=== PATIENT | male | born 1990 | race American Indian/Alaskan Native ===

== ENCOUNTER 2017-04-13 23:55 | Emergency (ER) | payer OTHER ==
[2017-04-14 00:49] LABS: Basophils % (Auto) 0.6 % (0.0-1.8); Eosinophils % (Auto) 1.3 % (0.0-4.3); Hematocrit 43.4 % (35.5-45.6); Hemoglobin 14.6 gm/dl (11.8-15.2); Mean Corpuscular HGB Conc 34 % (32-34); Mean Corpuscular Hemoglobin 32 pg (28-32); Mean Corpuscular Volume 95 fl (84-94); Platelet Count 297 K/mm3 (140-440); Red Blood Count 4.58 M/mm3 (3.65-5.03); Red Cell Distribution Width 13.5 % (13.2-15.2); White Blood Count 9.5 K/mm3 (4.5-11.0)
--- NOTE | 2017-04-14 00:52 | XRay Report ---
FINAL REPORT EXAM: XR CHEST ROUTINE 2V HISTORY: chest pain TECHNIQUE: 2 views of the chest. PRIORS: None. FINDINGS: The cardiomediastinal silhouette appears normal. The lungs are clear. The bones and soft tissues are unremarkable. IMPRESSION: No evidence of acute cardiopulmonary disease
[2017-04-14 01:12] LABS: Anion Gap 16 mmol/L; Blood Urea Nitrogen 14 mg/dL (9-20); Carbon Dioxide 24 mmol/L (22-30); Chloride 100.7 mmol/L (98-107); Glucose 106 mg/dL (75-100); Potassium 3.8 mmol/L (3.6-5.0); Sodium 137 mmol/L (137-145)
--- NOTE | 2017-04-14 03:49 | Emergency Department Report ---
ED Chest Pain HPI - General Chief Complaint: Chest Pain Stated Complaint: CHEST PAIN Time Seen by Provider: 04/14/17 03:48 Source: patient, RN notes reviewed Mode of arrival: Ambulatory Limitations: No Limitations - History of Present Illness Initial Comments: This is a 26-year-old male. He is previously unknown to me. He does not have a primary care doctor. He denies chronic medical conditions. He presents to the ER with chest pain. The chest pain is left-sided. Patient reports concurrent left-sided tingling. The pain itself does not radiate to the back, arms or neck. Patient reports a tingling is in his left arm and palm and fingertips. Patient also describes shortness of breath that came with his pain. He reports feeling very anxious and reports numerous psychosocial stressors. His pain started at 11:00 this evening. There is no leg pain or leg swelling. No recent trips greater than 4 hours. No recent hospital admissions. No recent cocaine use. No recent aspirin use. There is no hemoptysis or hematemesis. There is no cough. MD Complaint: chest pain -: Gradual Onset: during rest Pain Location: left chest Pain Radiation: LUE Severity: mild Severity scale (0 -10): 6 Quality: aching Consistency: intermittent Improves With: nothing Worsens With: nothing re: dyspnea. denies: nausea, vomting Other Symptoms: denies: cough, fever, syncope Treatments Prior to Arrival: none Aspirin use within the Past 7 Days: (0) No - Related Data On Oral Contraceptives: No Previous Rx's Medication Instructions Recorded Last Taken Type Ibuprofen [Motrin] 600 mg PO Q8H PRN #30 tablet 04/14/17 Unknown Rx Allergies Allergy/AdvReac Type Severity Reaction Status Date / Time No Known Allergies Allergy Verified 04/14/17 00:06 Heart Score - HEART Score History: Slightly suspicious EKG: Normal Age: < 45 Risk factors: No known risk factors Troponin: < normal limit HEART Score: 0 - Critical Actions Critical Actions: 0-3 pts:0.9-1.7%risk of adverse cardiac event.Candidate for discharge ED Review of Systems ROS: Stated complaint: CHEST PAIN Other details as noted in HPI Constitutional: denies: fever, malaise, weakness Eyes: denies: vision change ENT: denies: epistaxis Respiratory: shortness of breath Cardiovascular: chest pain Gastrointestinal: denies: abdominal pain Genitourinary: denies: dysuria Musculoskeletal: denies: back pain, arthralgia Skin: denies: lesions Neurological: paresthesias Psychiatric: anxiety ED Past Medical Hx - Past Medical History Additional medical history: anxiety - Surgical History Past Surgical History?: No - Social History Smoking Status: Current Every Day Smoker Substance Use Type: None - Medications Home Medications: Home Medications Medication Instructions Recorded Confirmed Last Taken Type Ibuprofen [Motrin] 600 mg PO Q8H PRN #30 tablet 04/14/17 Unknown Rx ED Physical Exam - General Limitations: No Limitations General appearance: alert, in no apparent distress - Head Head exam: Present: atraumatic, normocephalic - Eye Eye exam: Present: normal appearance, EOMI. Absent: nystagmus - ENT ENT exam: Present: normal exam, normal orophraynx, mucous membranes moist, normal external ear exam - Neck Neck exam: Present: normal inspection, full ROM. Absent: tenderness, meningismus - Respiratory Respiratory exam: Present: normal lung sounds bilaterally. Absent: respiratory distress, wheezes, rales, rhonchi, stridor, chest wall tenderness, accessory muscle use, decreased breath sounds, prolonged expiratory - Cardiovascular Cardiovascular Exam: Present: regular rate, normal rhythm, normal heart sounds. Absent: bradycardia, tachycardia, irregular rhythm, systolic murmur, diastolic murmur, rubs, gallop - GI/Abdominal GI/Abdominal exam: Present: soft, normal bowel sounds. Absent: distended, tenderness, guarding, rebound, rigid, pulsatile mass - Rectal Rectal exam: Present: deferred - Extremities Exam Extremities exam: Present: normal inspection, full ROM, normal capillary refill , other (there is 5 out of 5 strength in 4 extremities. Sensation intact to light touch, pinprick and proprioception in the bilateral upper and lower extremities. 2+ biceps, triceps, brachial radialis reflexes noted in the bilateral upper extremities. The upper extremity compartments are soft.). Absent: tenderness, calf tenderness - Back Exam Back exam: Present: normal inspection, full ROM. Absent: tenderness, CVA tenderness (R), CVA tenderness (L), muscle spasm, paraspinal tenderness, vertebral tenderness - Neurological Exam Neurological exam: Present: alert, oriented X3, normal gait, other (Extraocular movements intact. Tongue midline. No facial droop. Facial sensation intact to light touch in the V1, V2, V3 distribution bilaterally. 5 and 5 strength in 4 extremities.. Sensation is intact to light touch in 4 extremities.). Absent : motor sensory deficit - Psychiatric Psychiatric exam: Present: anxious - Skin Skin exam: Present: warm, dry, intact, normal color. Absent: rash ED Course Vital Signs 04/14/17 04/14/17 04/14/17 00:06 01:49 01:50 Temperature 98.3 F Pulse Rate 87 82 83 Respiratory 16 10 L 9 L Rate Blood Pressure 148/108 142/100 Blood Pressure [Right] O2 Sat by Pulse 99 100 100 Oximetry 04/14/17 04/14/17 04/14/17 02:00 02:01 02:10 Temperature Pulse Rate 73 77 Respiratory 14 15 Rate Blood Pressure 132/93 132/93 Blood Pressure 146/100 [Right] O2 Sat by Pulse 99 99 Oximetry 04/14/17 04/14/17 04/14/17 02:20 02:30 02:40 Temperature Pulse Rate 77 76 96 H Respiratory 14 14 23 Rate Blood Pressure 131/91 124/87 124/87 Blood Pressure [Right] O2 Sat by Pulse 98 98 99 Oximetry 04/14/17 04/14/17 04/14/17 02:50 03:00 03:10 Temperature Pulse Rate 64 71 81 Respiratory 14 13 18 Rate Blood Pressure 136/92 129/92 129/92 Blood Pressure [Right] O2 Sat by Pulse 98 99 100 Oximetry 04/14/17 04/14/17 04/14/17 03:20 03:30 03:40 Temperature Pulse Rate 76 64 74 Respiratory 10 L 14 20 Rate Blood Pressure 129/92 138/92 138/92 Blood Pressure [Right] O2 Sat by Pulse 100 99 99 Oximetry 04/14/17 03:50 Temperature Pulse Rate 67 Respiratory 13 Rate Blood Pressure 134/98 Blood Pressure [Right] O2 Sat by Pulse Oximetry MILTON score - Milton Score Age > 65: (0) No Aspirin use within the Past 7 Days: (0) No 3 or more CAD Risk Factors: (0) No 2 or more Angina events in past 24 hrs: (0) No Known CAD with more than 50% Stenosis: (0) No Elevated Cardiac Markers: (0) No ST Deviation Greater than 0.5mm: (0) No MILTON Score: 0 ED Medical Decision Making - Lab Data Result diagrams: 04/14/17 00:38 04/14/17 00:38 Vital Signs 04/14/17 04/14/17 04/14/17 00:06 01:49 01:50 Temperature 98.3 F Pulse Rate 87 82 83 Respiratory 16 10 L 9 L Rate Blood Pressure 148/108 142/100 Blood Pressure [Right] O2 Sat by Pulse 99 100 100 Oximetry 04/14/17 04/14/17 04/14/17 02:00 02:01 02:10 Temperature Pulse Rate 73 77 Respiratory 14 15 Rate Blood Pressure 132/93 132/93 Blood Pressure 146/100 [Right] O2 Sat by Pulse 99 99 Oximetry 04/14/17 04/14/17 04/14/17 02:20 02:30 02:40 Temperature Pulse Rate 77 76 96 H Respiratory 14 14 23 Rate Blood Pressure 131/91 124/87 124/87 Blood Pressure [Right] O2 Sat by Pulse 98 98 99 Oximetry 04/14/17 04/14/17 04/14/17 02:50 03:00 03:10 Temperature Pulse Rate 64 71 81 Respiratory 14 13 18 Rate Blood Pressure 136/92 129/92 129/92 Blood Pressure [Right] O2 Sat by Pulse 98 99 100 Oximetry 04/14/17 04/14/17 04/14/17 03:20 03:30 03:40 Temperature Pulse Rate 76 64 74 Respiratory 10 L 14 20 Rate Blood Pressure 129/92 138/92 138/92 Blood Pressure [Right] O2 Sat by Pulse 100 99 99 Oximetry 04/14/17 03:50 Temperature Pulse Rate 67 Respiratory 13 Rate Blood Pressure 134/98 Blood Pressure [Right] O2 Sat by Pulse Oximetry Lab Results 04/14/17 04/14/17 04/14/17 Range/Units 00:38 00:38 03:13 WBC 9.5 (4.5-11.0) K/mm3 RBC 4.58 (3.65-5.03) M/mm3 Hgb 14.6 (11.8-15.2) gm/dl Hct 43.4 (35.5-45.6) % MCV 95 H (84-94) fl MCH 32 (28-32) pg MCHC 34 (32-34) % RDW 13.5 (13.2-15.2) % Plt Count 297 (140-440) K/mm3 Lymph % (Auto) 44.7 H (13.4-35.0) % Noble % (Auto) 6.9 (0.0-7.3) % Eos % (Auto) 1.3 (0.0-4.3) % Baso % (Auto) 0.6 (0.0-1.8) % Lymph # 4.3 (1.2-5.4) K/mm3 Noble # 0.7 (0.0-0.8) K/mm3 Eos # 0.1 (0.0-0.4) K/mm3 Baso # 0.1 (0.0-0.1) K/mm3 Seg Neutrophils % 46.5 (40.0-70.0) % Seg Neutrophils # 4.4 (1.8-7.7) K/mm3 Sodium 137 (137-145) mmol/L Potassium 3.8 (3.6-5.0) mmol/L Carbon Dioxide 24 (22-30) mmol/L BUN 14 (9-20) mg/dL Creatinine 0.8 (0.8-1.5) mg/dL Estimated GFR > 60 ml/min BUN/Creatinine Ratio 17.50 % Glucose 106 H (75-100) mg/dL Calcium 9.0 (8.4-10.2) mg/dL Troponin T < 0.010 < 0.010 (0.00-0.029) ng/mL - EKG Data EKG shows normal: sinus rhythm, axis, intervals, QRS complexes, ST-T waves Rate: normal - EKG Data 04/14/17 04:08 EKG #1 demonstrates normal sinus, 76 bpm, normal intervals, normal axis, sinus arrhythmia. Not consistent with STEMI. No prior. 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 He is low risk by MILTON score, low risk by heart score, has no pulmonary embolus or DVT risk factors, he is low risk by well's criteria, and he is perc negative. Troponin negative multiple times. EKG unremarkable 2. Patient declines pain medication at this time, he states he is not having any pain. The patient is at low risk for major adverse cardiac event. He is instructed to follow-up with an outpatient emt paramedic. His neurologic examination and history are not consistent with cellulitis, myositis, rhabdo, compartment syndrome, or cervical cord compression at this time. Critical care attestation.: If time is entered above; I have spent that time in minutes in the direct care of this critically ill patient, excluding procedure time. ED Disposition Clinical Impression: Chest pain Disposition: DC-01 TO HOME OR SELFCARE Is pt being admited?: No Does the pt Need Aspirin: No Condition: Stable Instructions: Chest Pain (ED) Additional Instructions: Rest and avoid heavy lifting. Avoid strenuous physical activity. Follow up with a listed primary care doctor or emt paramedic within the next 5-7 days. Return to the ER right away with new pain, worsening pain, migration of pain, fevers, chills, confusion, weakness, inability to move an arm or leg, bladder or bowel retention or incontinence, confusion. Referrals: PRIMARY CARE, [Primary Care Provider] - 3-5 Days SAMIRA JAMES MD [Staff Physician] - 3-5 Days ASHLEY SORENSON MD [Staff Physician] - 3-5 Days KINDRA ROY MD [Staff Physician] - 3-5 Days
[2017-04-14 04:03] VITALS: BP 134/98
== END 2017-04-14 04:49 | disposition home or self-care (01) ==
LOC: ED 23:55
DX: R07.9 Chest pain, unspecified (principal)
CPT/HCPCS: 36415; 71020; 80048; 84484; 85025; 93005; 93010